=== PATIENT | female | born 1985 | race Caucasian/White ===

== ENCOUNTER → 2016-12-07 | Outpatient (CLI) | payer BC ==
[~2016-12-07] MED LIST: BIRTH CONTROL; CARDENE 20MG CA20 M1 PO; IRON325 M1 PO; LABETALOL300 MG PO; LOPERAMIDE2 MG PO; LORTAB 5/500 501 TAB PO; ORTHO TRI-CYCLE1 TAB PO; PRENATAL1 TA1 PO
== END ==
LOC: COL.RAD 14:42
DX: N20.0 Calculus of kidney (principal); K76.9 Liver disease, unspecified

== ENCOUNTER → 2019-02-22 | Outpatient (CLI) | payer OTHER | LOC: COL.RAD 07:04 | DX: H53.122 Transient visual loss, left eye (principal); R53.1 Weakness | CPT/HCPCS: A9585 ==

== ENCOUNTER → 2019-12-28 | Outpatient (CLI) | payer OTHER | LOC: COL.RAD 07:26 | DX: M54.6 Pain in thoracic spine (principal) ==

== ENCOUNTER → 2020-01-26 | Outpatient (CLI) | payer OTHER | LOC: COL.RAD 01-16 08:15 | DX: M54.6 Pain in thoracic spine (principal) | CPT/HCPCS: A9585 ==

== ENCOUNTER → 2020-01-26 | Outpatient (CLI) | payer OTHER | LOC: MC.RAD 08:52 | DX: N64.52 Nipple discharge (principal); N63.41 Unspecified lump in right breast, subareolar ==

== ENCOUNTER → 2020-05-22 | Outpatient (CLI) | payer OTHER | LOC: MC.RAD 11:00 | DX: N60.41 Mammary duct ectasia of right breast (principal); N64.52 Nipple discharge ==

== ENCOUNTER → 2021-03-22 | Emergency (ER) | payer OTHER | LOC: COL.ER 22:46 | DX: R69 Illness, unspecified (principal) ==

== ENCOUNTER → 2021-08-11 | Outpatient (CLI) | payer OTHER | LOC: COL.RAD 06:57 | DX: R10.11 Right upper quadrant pain (principal) ==